=== PATIENT | female | born 1980 | race African-American/Black ===

== ENCOUNTER 2018-12-13 15:07 | Emergency (ER) | payer MEDICAID, OTHER ==
[~2018-12-13] VITALS: Ht 167.6 cm; Wt 77.1 kg
[2018-12-13 18:38] VITALS: BP 112/57
[2018-12-13] MEDS ORDERED: methylPREDNISolone SOD SUCC 125 MG/2 ML VL IM ONE (19:30)
== END 2018-12-13 20:43 | disposition home or self-care (01) ==
LOC: ER 15:07
DX: S93.401A Sprain of unspecified ligament of right ankle, initial encounter (principal); F17.210 Nicotine dependence, cigarettes, uncomplicated; F12.90 Cannabis use, unspecified, uncomplicated; Z88.6 Allergy status to analgesic agent; Z88.8 Allergy status to other drugs, medicaments and biological substances; W23.0XXA Caught, crushed, jammed, or pinched between moving objects, initial encounter; Y93.89 Activity, other specified; Y99.0 Civilian activity done for income or pay; Y92.89 Other specified places as the place of occurrence of the external cause
CPT/HCPCS: 73600; 73620; 93971; 96372; 99284; J2930

== ENCOUNTER 2021-01-29 21:00 | Emergency (ER) | payer MEDICAID, OTHER ==
[~2021-01-29] VITALS: Ht 167.6 cm; Wt 77.1 kg
[2021-01-30 02:00] VITALS: BP 129/93
[2021-01-30] MEDS ORDERED: ACETAMINOPHEN/CODEINE#3 (300/30mg) TAB PO ONE (04:45)
[2021-01-30] MEDS ORDERED: ONDANSETRON ODT 4 MG TAB PO ONE (04:45)
== END 2021-01-30 05:02 | disposition home or self-care (01) ==
LOC: ER 21:01
DX: S93.402A Sprain of unspecified ligament of left ankle, initial encounter (principal); F17.210 Nicotine dependence, cigarettes, uncomplicated; F12.10 Cannabis abuse, uncomplicated; Z88.8 Allergy status to other drugs, medicaments and biological substances; X58.XXXA Exposure to other specified factors, initial encounter; Y93.89 Activity, other specified; Y92.89 Other specified places as the place of occurrence of the external cause; Y99.8 Other external cause status
CPT/HCPCS: 73610; 73630; 99284; Q0162